=== PATIENT | male | born 1985 | race African-American/Black ===

== ENCOUNTER 2024-05-04 10:17 | Outpatient (OUT) | payer BC, OTHER, SELFPAY ==
--- NOTE | 2024-05-04 10:21 | XR_ITS ---
[facility] [id number] Patient Name: SYLVIA LOWERY MRN: [id number] date: 1985 Sex: M Assigned Patient Location: RAD Current Patient Location: RAD Accession/Order Number: [id number] Exam Date: 05/04/2024 10:30 Report Date: 05/04/2024 15:24 At the request of: JOSSE CHAVARRIA Procedure: XR femur LT 2V PROCEDURE: XR femur LT 2V, XR hip LT min 2V COMPARISON: None. HISTORY: Left Leg Pain FINDINGS: BONES:No acute fracture or dislocation. Contour deformity of the mid femoral diaphysis with cortical thickening consistent with a remote healed fracture. Mild hip osteoarthropathy with marginal osteophyte formation along the superior acetabulum. Enthesopathic spurring of the greater trochanter SOFT TISSUES:Negative. No visible soft tissue swelling. EFFUSION:None visible. OTHER: Negative. XR/XR femur LT 2V IMPRESSION: No acute abnormality of the hip or femur Electronically authenticated by: EMERALD SEGURA Date: 05/04/2024 15:24
--- NOTE | 2024-05-04 10:21 | XR_ITS ---
[facility] [id number] Patient Name: SYLVIA LOWERY MRN: [id number] date: 1985 Sex: M Assigned Patient Location: RAD Current Patient Location: RAD Accession/Order Number: [id number] Exam Date: 05/04/2024 10:30 Report Date: 05/04/2024 15:24 At the request of: JOSSE CHAVARRIA Procedure: XR hip LT min 2V PROCEDURE: XR femur LT 2V, XR hip LT min 2V COMPARISON: None. HISTORY: Left Leg Pain FINDINGS: BONES:No acute fracture or dislocation. Contour deformity of the mid femoral diaphysis with cortical thickening consistent with a remote healed fracture. Mild hip osteoarthropathy with marginal osteophyte formation along the superior acetabulum. Enthesopathic spurring of the greater trochanter SOFT TISSUES:Negative. No visible soft tissue swelling. EFFUSION:None visible. OTHER: Negative. XR/XR hip LT min 2V IMPRESSION: No acute abnormality of the hip or femur Electronically authenticated by: EMERALD SEGURA Date: 05/04/2024 15:24
== END 2024-05-04 10:18 | disposition home or self-care (01) ==
LOC: RAD 10:17
PROVIDERS: PCP Family Medicine; Visit Provider Family Medicine
DX: M79.605 Pain in left leg (principal)
CPT/HCPCS: 73502; 73552

== ENCOUNTER 2025-01-05 10:18 | Outpatient (OUT) | payer BC, OTHER, SELFPAY ==
[2025-01-05 11:15] LABS: Anion Gap 13.4; Carbon Dioxide 26.6 mmol/L (21.0-32.0); Chloride 106 mmol/L (98-107); Estimated Average Glucose 111 mg/dL; Glucose 93 mg/dL (74-106); Glycohemoglobin A1C 5.5 % (4.5-6.2); Sodium 142 mmol/L (136-145)
[2025-01-05 11:16] LABS: Alanine Aminotransferase 31 U/L (16-63); Albumin Globulin Ratio 0.9; Albumin Level 3.7 g/dL (3.4-5.0); Alkaline Phosphatase 105 U/L (46-116); Aspartate Amino Transferase 20 U/L (15-37); Bilirubin Total 0.8 mg/dL (0.2-1.0); Calcium 8.6 mg/dL (8.5-10.1); Cholesterol 178 mg/dL (<=200); Estimated GFR (African America >60 (>=60 mL/min/1.73m^2); Estimated GFR (Non-African Ame >60 (>=60 mL/min/1.73m^2); Total Protein 7.7 g/dL (6.4-8.2); Triglycerides 87 mg/dL (<=150); VLDL CHOLESTEROL 17.4 mg/dL
[2025-01-05 11:17] LABS: Chol HDL Ratio 4.7; HDL Cholesterol 38 mg/dL (40-60); Thyroid Stimulating Hormone 0.375 uIU/mL (0.358-3.740)
[2025-01-05 11:53] LABS: Prostate Specific Antigen Scrn 1.26 ng/mL (<=4.00)
[2025-01-07 12:07] LABS: Insulin 21.6 uIU/mL (2.6-24.9)
== END 2025-01-05 10:19 | disposition home or self-care (01) ==
LOC: LAB 10:20
PROVIDERS: PCP Family Medicine; Visit Provider Family Medicine
DX: Z00.00 Encounter for general adult medical examination without abnormal findings (principal)
CPT/HCPCS: 36415; 80053; 80061; 83036; 83525; 84436; 84443; 84481; G0103